=== PATIENT | female | born 1975 | race Caucasian/White ===

== ENCOUNTER 2019-09-17 13:45 | Emergency (ER) | payer OTHER ==
[~2019-09-17] VITALS: Ht 170.2 cm; Wt 59.0 kg
[~2019-09-17 13:45] MED LIST: ACETAMINOPHEN-1 EAC1 PO; ACETAMINOPHEN650 M5 PO; ALBUTEROL INHAL17 GM IH; ALPRAZOLAM; ASPIRIN EC81 M1 PO; BUSPIRONE HCL10 MG PO; CARAFATE 1 GM TA1 G1 PO; CARAFATE1 GM PO; CELEXA20 MG PO; CIPROFLOXACIN500 M3 OR; FOLIC ACID0.8 MG PO; HYDROCODONE-AP1 EAC6 PO; IBUPROFEN 800800 MG PO; KEPPRA 500 MG500 M1 PO; KEPPRA 500 MG500 MG PO; LAMICTAL 25 MG25 M1 PO; METOPROLOL SUCC25 M1 PO; MULTIVITAMINS PO; NAPROSYN500 MG PO; NOHOMEMEDICATIONS; NORCO 5-325 TA1 EACH PO; OMEPRAZOLE20 M2 PO; PAXIL; PAXIL30 MG; PERCOCET 5-3251 EACH PO; PROMETHAZINE12.5 M1 PO; PROPRANOLOL 20M20 M1 PO; PROTONIX40 MG PO; PYRIDIUM200 MG PO; ROBAXIN500 MG PO; TRAZODONE HCL100 MG PO; VICODIN; VISTARIL 25 MG25 M1 PO; VITAMIN B-1100 M1 PO; XANAX XR1 MG PO; ZOFRAN8 MG PO; ZPAK PO; [UNRECOGNIZED DRUG - REMARK]
[2019-09-17 14:38] LABS: ABSOLUTE BASOPHILS 0.1 thou/uL (0.0-0.2); ABSOLUTE EOSINOPHILS 0.3 thou/uL (0.0-0.7); ABSOLUTE LYMPHOCYTES 3.6 thou/uL (0.8-5.3); ABSOLUTE MONOCYTES 0.8 thou/uL (0.0-1.2); ABSOLUTE NEUTROPHILS 7.7 thou/uL (1.6-8.1); BASOPHILS 1.1 %; EOSINOPHILS 2.3 %; HEMOGLOBIN 15.7 gm/dL (12.0-15.0); LYMPHOCYTES 28.6 %; MCH 32.3 pg (26.0-34.0); MCHC 34.1 g/dL (28.0-37.0); MCV 94.9 fL (80.0-100.0); MONOCYTES 6.3 %; MPV 7.2 fl. (7.2-11.1); NUCLEATED RBCS 0 /100WBC; PLATELET COUNT* 361 thou/uL (150-400); POLYS 61.7 %; RBC 4.85 mil/uL (4.20-5.00); RDW-CV 13.9 % (10.5-14.5); WBC 12.4 thou/uL (4.0-11.0)
[2019-09-17 14:39] LABS: URINE BILIRUBIN NEGATIVE (Negative); URINE BLOOD NEGATIVE (Negative); URINE CLARITY CLEAR; URINE COLOR YELLOW; URINE GLUCOSE-RANDOM NEGATIVE (Negative); URINE KETONES NEGATIVE (Negative); URINE LEUKOCYTES-REFLEX 1+ (Negative); URINE NITRITE-REFLEX NEGATIVE (Negative); URINE PROTEIN NEGATIVE (Negative); URINE SPECIFIC GRAVITY <= 1.005 (1.005-1.030); URINE UROBILINOGEN 0.2 E.U./dl (0.2-1.0)
[2019-09-17 14:42] LABS: BACTERIA-REFLEX None Seen /HPF (None Seen); CASTS None Seen /LPF (None Seen); SQUAMOUS 4-10 Moderate /LPF (0-3); URINE RBC None Seen /HPF (0-2); URINE WBC-REFLEX 6-15 Few /HPF (0-5)
[2019-09-17 14:43] LABS: CRYSTALS None Seen /LPF (None Seen)
[2019-09-17 14:48] LABS: AMP/METHAMP Negative (Negative); BARBITURATES Negative (Negative); BENZODIAZEPINES POSITIVE (Negative); COCAINE Negative (Negative); METHADONE Negative (Negative); OPIATES Negative (Negative); PCP Negative (Negative); THC Negative (Negative)
[2019-09-17 14:51] LABS: ALCOHOL 276 mg/dL (<10); SALICYLATE 6.4 mg/dL (2.8-20.0)
[2019-09-17 14:52] LABS: ACETAMINOPHEN < 2 ug/mL (10-30)
[2019-09-17 15:00] LABS: CALCIUM 8.3 mg/dL (8.5-10.1); CREATININE 0.6 mg/dL (0.6-1.3); POTASSIUM 3.4 mmol/L (3.5-5.1)
[2019-09-17 15:05] LABS: ALBUMIN 3.4 g/dL (3.4-5.0); TOTAL BILIRUBIN 0.2 mg/dL (<0.1-1.0); TOTAL PROTEIN 7.4 g/dL (6.4-8.2)
[2019-09-17 23:30] VITALS: BP 92/56
--- NOTE | 2019-09-20 16:22 | EKG ---
[place] [address] ELECTROCARDIOGRAM REPORT Name: RUBÉN FISH Room: [facility]#: [id number] Admission: 09/17/19 Attend Phys: Discharge: 09/17/19 Date of : 77 Date of Service: 09/17/19 1420 Report #: [id number] THIS REPORT FOR: //name// 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1975 Requested By: Cam Muñiz Order Number: [id number] Reading MD: Leon Varghese Measurements Intervals [place] Rate: 90 P: 56 OK: 187 QRS: 18 QRSD: 85 T: 22 QT: 372 QTc: 455 Interpretive Statements Sinus rhythm Low voltage, precordial leads Abnormal R-wave progression, early transition Borderline T abnormalities, anterior leads Compared to ECG 07/03/2016 19:41:43 T-wave abnormality now present Atrial abnormality no longer present Electronically Signed On 09-20-2019 16:21:02 CDT by Leon Varghese [email or web address] <ELECTRONICALLY SIGNED> By: Leon Varghese MD, FACC 09/20/19 1621 1420 1420 Leon Varghese MD, FACC /EPI
== END 2019-09-17 23:45 ==
LOC: M.ERS 13:45
PROVIDERS: Emergency Medicine
DX: R45.851 Suicidal ideations (principal); Z90.49 Acquired absence of other specified parts of digestive tract; Z88.8 Allergy status to other drugs, medicaments and biological substances

== ENCOUNTER 2019-11-30 12:28 | Emergency (ER) | payer OTHER ==
[~2019-11-30] VITALS: Ht 170.2 cm; Wt 56.7 kg
[2019-11-30] MEDS ORDERED: ASA81BEC PO (12:49)
[2019-11-30] MEDS ORDERED: LEVAQUIN 500 M500 M2 PO (14:43)
[2019-11-30] MEDS ORDERED: NORCO 5-325 TA1 EAC1 PO (14:43)
[2019-11-30] MEDS ORDERED: VENTOLIN HFA 1818 GM INH (14:46)
[2019-11-30 14:59] VITALS: BP 103/65
== END 2019-11-30 14:59 | disposition home or self-care (01) ==
LOC: M.ERS 12:28
DX: J32.9 Chronic sinusitis, unspecified (principal); J40 Bronchitis, not specified as acute or chronic; I10 Essential (primary) hypertension; K50.90 Crohn's disease, unspecified, without complications; F41.9 Anxiety disorder, unspecified; F17.210 Nicotine dependence, cigarettes, uncomplicated; Z90.49 Acquired absence of other specified parts of digestive tract; Z88.8 Allergy status to other drugs, medicaments and biological substances

== ENCOUNTER 2021-04-15 10:07 | Emergency (ER) | payer OTHER ==
[~2021-04-15] VITALS: Ht 170.2 cm; Wt 54.4 kg
[~2021-04-15 10:07] MED LIST changes: +ASA81BEC PO; +LEVAQUIN 500 M500 M2 PO; +NORCO 5-325 TA1 EAC1 PO; +VENTOLIN HFA 1818 GM INH
[2021-04-15 10:52] LABS: ABSOLUTE BASOPHILS 0.1 thou/uL (0.0-0.2); ABSOLUTE EOSINOPHILS 0.1 thou/uL (0.0-0.7); ABSOLUTE LYMPHOCYTES 2.1 thou/uL (0.8-5.3); ABSOLUTE MONOCYTES 0.6 thou/uL (0.0-1.2); ABSOLUTE NEUTROPHILS 4.9 thou/uL (1.6-8.1); BASOPHILS 1.1 %; EOSINOPHILS 1.7 %; HEMATOCRIT 42.1 % (37.0-47.0); HEMOGLOBIN 14.5 gm/dL (12.0-15.0); LYMPHOCYTES 26.9 %; MCH 33.9 pg (26.0-34.0); MCHC 34.4 g/dL (28.0-37.0); MCV 98.3 fL (80.0-100.0); MONOCYTES 7.6 %; MPV 6.8 fl. (7.2-11.1); NUCLEATED RBCS 0 /100WBC; PLATELET COUNT* 292 thou/uL (150-400); POLYS 62.7 %; RBC 4.28 mil/uL (4.20-5.00); RDW-CV 13.3 % (10.5-14.5); WBC 7.8 thou/uL (4.0-11.0)
[2021-04-15 11:02] LABS: CALCIUM 8.5 mg/dL (8.5-10.1); CREATININE 0.8 mg/dL (0.6-1.3); POTASSIUM 3.8 mmol/L (3.5-5.1)
[2021-04-15 11:07] LABS: ALBUMIN 3.6 g/dL (3.4-5.0); TOTAL BILIRUBIN 0.1 mg/dL (<0.1-1.0); TOTAL PROTEIN 7.2 g/dL (6.4-8.2)
[2021-04-15] MEDS ORDERED: VISTARIL 25 MG25 M1 PO (11:10)
[2021-04-15] MEDS ORDERED: XANAX1 MG PO (11:10)
[2021-04-15 11:20] VITALS: BP 117/73
--- NOTE | 2021-04-16 10:28 | EKG ---
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 04/16/21 1028 1008 1008 Joshua Randolph MD, [facility] /EPI
== END 2021-04-15 11:23 | disposition home or self-care (01) ==
LOC: M.ERS 10:07
PROVIDERS: Physician Assistant
DX: F41.9 Anxiety disorder, unspecified (principal); Z88.8 Allergy status to other drugs, medicaments and biological substances; Z90.49 Acquired absence of other specified parts of digestive tract

== ENCOUNTER 2021-08-16 13:34 | Emergency (ER) | payer OTHER ==
[~2021-08-16] VITALS: Ht 170.2 cm; Wt 59.0 kg
[~2021-08-16 13:34] MED LIST changes: +XANAX1 MG PO
[2021-08-16 17:53] VITALS: BP 114/82
--- NOTE | 2021-08-17 09:35 | EKG ---
[place] [address] ELECTROCARDIOGRAM REPORT Name: RUBÉN FISH Room: [facility]#: [id number] Admission: 08/16/21 Attend Phys: Discharge: 08/16/21 Date of : 77 Date of Service: 08/16/21 1410 Report #: [id number] THIS REPORT FOR: //name// [facility] ED Test Date: 2021-08-16 Test Time: 14:10:30 Pat Name: RUBÉN FISH Department: Room: Gender: F [place] A Driver: TJPat : 1975 Requested By: Rafael Jackson Order Number: [id number] MD: Rufus Salomon Measurements Intervals [place] Rate: 85 P: 68 MS: 167 QRS: 11 QRSD: 77 T: 33 QT: 358 QTc: 426 Interpretive Statements Sinus rhythm Left atrial enlargement Low voltage, precordial leads Probable septal infarct, old Baseline wander in lead(s) I,II,III,aVR,aVL Compared to ECG 04/15/2021 10:08:27 Atrial abnormality now present Low QRS voltage now present Myocardial infarct finding now present Electronically Signed On 08-17-2021 9:35:35 ASH CONVEYOR OPERATOR by Rufus Salomon [email or web address] <ELECTRONICALLY SIGNED> By: Rufus Salomon MD, [facility] 08/17/21 0935 1410 1410 Rufus Salomon MD, [facility] /EPI
== END 2021-08-16 17:54 | disposition home or self-care (01) ==
LOC: M.ERS 13:34
DX: R07.89 Other chest pain (principal); I10 Essential (primary) hypertension; F41.9 Anxiety disorder, unspecified; F17.210 Nicotine dependence, cigarettes, uncomplicated; Z90.89 Acquired absence of other organs; Z79.82 Long term (current) use of aspirin; Z79.899 Other long term (current) drug therapy; Z88.6 Allergy status to analgesic agent